=== PATIENT | female | born 1960 | race Caucasian/White ===

== ENCOUNTER → 2017-01-19 | Outpatient (CLI) | payer OTHER | LOC: FIMAGING 09:09 | DX: Z12.31 Encounter for screening mammogram for malignant neoplasm of breast (principal); Z85.3 Personal history of malignant neoplasm of breast | CPT/HCPCS: G0202 ==

== ENCOUNTER → 2018-01-20 | Outpatient (CLI) | payer OTHER | LOC: FIMAGING 08:56 | PROVIDERS: ATTEND Internal Medicine Hematology & Oncology | DX: Z12.31 Encounter for screening mammogram for malignant neoplasm of breast (principal); Z85.3 Personal history of malignant neoplasm of breast ==

== ENCOUNTER → 2018-01-28 | Outpatient (CLI) | payer OTHER | LOC: FIMAGING 11:12 | PROVIDERS: ATTEND Internal Medicine Hematology & Oncology | DX: R92.0 Mammographic microcalcification found on diagnostic imaging of breast (principal) ==

== ENCOUNTER → 2018-02-03 | Day surgery (SDC) | payer OTHER ==
[~2018-02-03] MED LIST: BUPIVACAINE 0.5% 10 ML SDV ONE; LIDOCAINE 1% 300 MG/30 ML SDV ONE; THROMBIN (BOVINE) 5,000 UNIT VIAL TP ONE
== END | disposition home or self-care (01) ==
LOC: FIMAGING 07:17
PROVIDERS: ATTEND Internal Medicine Hematology & Oncology
PROC: 0HBU3ZX Excision of Left Breast, Percutaneous Approach, Diagnostic (ICD-10-PCS; principal; 2018-02-03)
PROC: BH01ZZZ Plain Radiography of Left Breast (ICD-10-PCS; principal; 2018-02-03)
DX: D05.12 Intraductal carcinoma in situ of left breast (principal); Z85.3 Personal history of malignant neoplasm of breast; Z92.21 Personal history of antineoplastic chemotherapy

== ENCOUNTER → 2018-02-17 | Outpatient (CLI) | payer OTHER ==
[~2018-02-17] MED LIST changes: -BUPIVACAINE 0.5% 10 ML SDV ONE; +GADOBUTROL 10 ML VIAL IVP ONE; -LIDOCAINE 1% 300 MG/30 ML SDV ONE; -THROMBIN (BOVINE) 5,000 UNIT VIAL TP ONE
== END ==
LOC: FIMAGING 06:59
PROVIDERS: ATTEND Internal Medicine Hematology & Oncology
DX: D05.11 Intraductal carcinoma in situ of right breast (principal)
CPT/HCPCS: 0159T; A9585; C8908

== ENCOUNTER → 2018-03-17 | Day surgery (SDC) | payer OTHER ==
[~2018-03-17] MED LIST changes: -GADOBUTROL 10 ML VIAL IVP ONE; +LIDOCAINE 1% 300 MG/30 ML SDV ONE
== END | disposition home or self-care (01) ==
LOC: FIMAGING 07:31
PROVIDERS: ATTEND Radiology Diagnostic Radiology
DX: D05.11 Intraductal carcinoma in situ of right breast (principal); Z88.0 Allergy status to penicillin
CPT/HCPCS: 76098; 78195; A9520

== ENCOUNTER 2018-05-31 10:53 | Day surgery (SDC) | payer OTHER ==
[2018-05-31] MEDS ORDERED: LIDOCAINE 1% 2 ML INJ ID PRN (11:08)
[2018-05-31] MEDS ORDERED: LR 1,000 ML IV ONE (11:08)
[2018-05-31] MEDS ORDERED: INDOMETHACIN 50 MG SUPP PR PRN (12:32)
--- NOTE | 2018-05-31 12:32 | PDGENHP ---
History & Physical Chief Complaint: hx of polyps History of Present Illness: 57 year old female presents for surveillanc e of a complex hepatic flexure polyp Pertinent Past, Social, Family History: PMHx: Breast cancer. SurHx: Mastectomy Relevant Physical Exam: HEENT: anicterc. CV: RRR +s1s2. Lungs: CTAB No w/r/r. Abd: soft, nt, + BS Cardiorespiratory Assessment: ASA 2
[2018-05-31] MEDS ORDERED: PROPOFOL/EMULSION 500 MG/50 ML BOTTLE IV ONE (12:37)
[2018-05-31] MEDS ORDERED: MIDAZOLAM 2 MG/2 ML VIAL IVP ONE (12:41)
[2018-05-31] MEDS ORDERED: MIDAZOLAM 2 MG/2 ML VIAL ONE (12:42)
[2018-05-31] MEDS ORDERED: NS 500 ML IV SCH (12:45)
[2018-05-31] MEDS ORDERED: NALOXONE HCL 0.4 MG/ML INJ IVP PRN (13:12)
[2018-05-31] MEDS ORDERED: ALBUTEROL 3 ML DEYVIAL IH PRN (13:12)
[2018-05-31] MEDS ORDERED: ONDANSETRON 4 MG/2 ML VIAL IVP PRN (13:12)
--- NOTE | 2018-05-31 13:13 | POSTANESTH ---
Post Anesthetic Evaluation Cardiovascular Status: Similar to Pre-Op Cond Respiratory Status: Similar to Pre-op Cond. Level of Consciousness/Mental Status: Mildly Sleepy, Arousable Pain Control: Adequate, Prn Tx Ordered Nausea/Vomiting Control: Adequate, Prn Tx Ordered Complications Possibly Related to Anesthesia: None Noted
--- NOTE | 2018-05-31 13:13 | PDANEPAE ---
ANE Past Medical History - Cardiovascular History Hx Hypertension: No Hx Arrhythmias: No Hx Chest Pain: No Hx Coronary Artery / Peripheral Vascular Disease: No Hx CHF / Valvular Disease: No Hx Palpitations: No - Pulmonary History Hx COPD: No Hx Asthma/Reactive Airway Disease: No Hx Recent Upper Respiratory Infection: No Hx Oxygen in Use at Home: No Hx Sleep Apnea: No Sleep Apnea Screening Result - Last Documented: Negative - Neurologic History Hx Cerebrovascular Accident: No Hx Seizures: No Hx Dementia: No - Endocrine History Hx Diabetes: No - Renal History Hx Renal Disorders: No - Liver History Hx Hepatic Disorders: No - Neurological & Psychiatric Hx Hx Neurological and Psychiatric Disorders: Yes Neurological / Psychiatric History Comment: depression,anxiety - Cancer History Hx Cancer: Yes Cancer History Comment: breast - Congenital Disorder History Hx Congenital Disorders: No - GI History Hx Gastrointestinal Disorders: No - Other Health History Other Health History: none - Chronic Pain History Chronic Pain: No - Surgical History Prior Surgeries: lumpectomy 2013. lumpectomy 2018. colonoscopies ANE Review of Systems Review of Systems: - Exercise capacity METS (RN): 4 METS ANE Patient History - Allergies Allergies/Adverse Reactions: Penicillins Allergy (Verified 05/17/18 16:22) Rash - Home Medications Home Medications: Cholecalciferol (Vitamin D3) 05/17/18 [Last Taken 05/29/18] Co Q-10 05/17/18 [Last Taken 05/29/18] Desonide 05/17/18 [Last Taken 05/29/18] Flaxseed Oil 05/17/18 [Last Taken Unknown] Glucosamine 05/17/18 [Last Taken 05/30/18] Liothyronine Sodium 05/17/18 [Last Taken 05/30/18] Preservision Areds 2 Softgel 05/17/18 [Last Taken 05/29/18] Sertraline HCl 05/17/18 [Last Taken 05/30/18] Simvastatin 05/17/18 [Last Taken 05/29/18] Synthroid 05/17/18 [Last Taken 05/30/18] Tamoxifen Citrate 05/17/18 [Last Taken 05/30/18] VAGIFEM 05/17/18 [Last Taken 05/30/18] - NPO status NPO Since - Liquids (Date): 05/31/18 NPO Since - Liquids (Time): 02:00 NPO Since - Solids (Date): 05/30/18 NPO Since - Solids (Time): 08:45 - Smoking Hx Smoking Status: Never smoked - Family Anes Hx Family Hx Anesthesia Complications: none ANE Labs/Vital Signs - Vital Signs Blood Pressure: 158/83 Heart Rate: 71 Respiratory Rate: 19 O2 Sat (%): 95 Height: 157.48 cm Weight: 80.739 kg ANE Physical Exam - Airway Neck exam: FROM Mallampati Score: Class 2 Mouth exam: normal dental/mouth exam - Pulmonary Pulmonary: no respiratory distress - Cardiovascular Cardiovascular: regular rate and rhythym - ASA Status ASA Status: III ANE Anesthesia Plan Total IV Anesthesia: Yes
--- NOTE | 2018-05-31 13:26 | GIREPORT ---
[facility] Surgical Services - Endoscopy Department Patient Name: Britany Card Procedure Date: 05/31/2018 12:16 PM Patient Type: Outpatient Attending MD/ ER Physician: Rogelio Nelson MD Procedure: Colonoscopy Indications: High risk colon cancer surveillance: Personal history of colonic polyps Patient Profile: 57 year old female with a history of a complex polyp in the hepatic fle xure presents or surveillance colonoscopy. Providers: Rogelio Nelson MD Medicines: Monitored Anesthesia Care Complications: No immediate complications. Estimated blood loss: Minimal. Description of Procedure: After obtaining informed consent, the scope was passed under direct vis ion. Throughout the procedure, the patient's blood pressure, pulse, and oxyg en saturations were monitored continuously. The Colonoscope with irrigatio n channel was introduced through the anus and advanced to the cecum, identified by appendiceal orifice and ileocecal valve. The colonoscopy was performed without difficulty. The patient tolerated the procedure well. The quality of the bowel preparation was good. The ileocecal valve, appendi ceal orifice, and rectum were photographed. Findings: The perianal and digital rectal examinations were normal. Pertinent negatives include no palpable rectal lesions. A 2 mm polyp was found in the ascending colon. The polyp was sessile. T he polyp was removed with a cold biopsy forceps. Resection and retrieval w ere complete. A tattoo was seen at the hepatic flexure. A post-polypectomy scar was f ound at the tattoo site. There was no evidence of residual polyp tissue. Estimated Blood Loss: Estimated blood loss was minimal. Post Op Diagnosis: - One 2 mm polyp in the ascending colon, removed with a cold biopsy for ceps. Resected and retrieved. - A tattoo was seen at the hepatic flexure. A post-polypectomy scar was found at the tattoo site. There was no evidence of residual polyp tissu e. Recommendation: - Discharge patient to home (with escort). - Resume previous diet. - Continue present medications. - Repeat colonoscopy in 2 years for surveillance. - Thank you for allowing me to participate in the care of your patient. Attending Participation: I personally performed the entire procedure. Rogelio Nelson MD Rogelio Nelson MD 05/31/2018 1:25:25 PM This report has been signed electronicallyRogelio Nelson MD Number of Addenda: 0 Note Initiated On: 05/31/2018 12:16 PM Total Procedure Duration Time 0 hours 15 minutes 35 seconds [email or web address]
[2018-05-31 15:00] VITALS: BP 154/84
== END 2018-05-31 14:53 | disposition home or self-care (01) ==
LOC: FSGY 10:53
PROVIDERS: ATTEND Internal Medicine Gastroenterology
PROC: 0DJD8ZZ Inspection of Lower Intestinal Tract, Via Natural or Artificial Opening Endoscopic (ICD-10-PCS; principal; 2018-05-31 12:30)
PROC: 0DBK8ZX Excision of Ascending Colon, Via Natural or Artificial Opening Endoscopic, Diagnostic (ICD-10-PCS; principal; 2018-05-31 12:30)
DX: Z12.11 Encounter for screening for malignant neoplasm of colon (principal); D12.2 Benign neoplasm of ascending colon; Z86.010 Personal history of colon polyps; Z85.3 Personal history of malignant neoplasm of breast
CPT/HCPCS: J2250; J2704

== ENCOUNTER 2018-06-23 16:33 | Emergency (ER) | payer OTHER ==
--- NOTE | 2018-06-23 17:19 | CPEKG ---
Heart Rate: 74 RR Interval: 811 P-R Interval: 160 QRSD Interval: 98 QT Interval: 416 QTC Interval: 462 P Mobile: 31 QRS Mobile: 62 T Wave Mobile: 12 EKG Severity - NORMAL ECG - EKG Impression: SINUS RHYTHM Electronically Signed By: Shamika Freeman 23-Jun-2018 20:42:13
[2018-06-23 17:37] LABS: PLATELET COUNT 185 10^3/uL (150-400)
--- NOTE | 2018-06-23 18:21 | EDPHY ---
H & P Stated Complaint: SOB Time Seen by Provider: 06/23/18 16:57 HPI/ROS: CHIEF COMPLAINT: Shortness of breath HISTORY OF PRESENT ILLNESS: 57-year-old female with recurrent breast cancer presents with shortness of breath. She just completed a 2nd round of XRT. 1 week ago she was seen at an outside facility for right-sided chest pain. CT pulmonary angiogram reportedly negative. The chest pain has been controlled with ibuprofen 3 times daily. Today, she had an episode of exertional shortness of breath. She walked 1 block and became so short of breath that she needed to stop. Under a tremendous amount of stress recently related to recurrent cancer and her work. Pt thinks sx may be secondary to anxiety. No cough or fever. REVIEW OF SYSTEMS: complete 10 point ROS negative except at noted in the HPI - Personal History Current Tetanus/Diphtheria Vaccine: Unsure Current Tetanus Diphtheria and Acellular Pertussis (TDAP): Unsure - Medical/Surgical History Hx Asthma: No Hx Chronic Respiratory Disease: No Hx Diabetes: No Hx Cardiac Disease: No Hx Renal Disease: No Hx Cirrhosis: No Hx Alcoholism: No Hx HIV/AIDS: No Hx Splenectomy or Spleen Trauma: No Other PMH: Breast CA, hypothyroid, c section, HTN, hyperlipidemia - Social History Smoking Status: Unknown if ever smoked - Physical Exam Exam: General Appearance: Alert, pleasant Eyes: Pupils equal and round, no conjunctival pallor or injection ENT, Mouth: Mucous membranes moist Neck: Normal inspection Respiratory: Normal respiratory rate, Lungs are clear to auscultation Cardiovascular: Regular rate and rhythm Gastrointestinal: Abdomen is soft and nontender Neurological: A&O, nonfocal, normal gait Skin: Warm and dry, no rash Extremities: Nontender, no pedal edema Psychiatric: Mood and affect normal Constitutional: Initial Vital Signs Temperature (C) 37.2 C 06/23/18 16:43 Heart Rate 92 06/23/18 16:43 Respiratory Rate 16 06/23/18 16:43 Blood Pressure 173/96 H 06/23/18 16:43 O2 Sat (%) 95 06/23/18 16:43 O2 Delivery Mode Room Air Allergies/Adverse Reactions: Penicillins Allergy (Verified 06/23/18 16:40) Rash Home Medications: Medication Instructions Recorded Cholecalciferol (Vitamin D3) 05/17/18 Co Q-10 05/17/18 Desonide 05/17/18 Flaxseed Oil 05/17/18 Glucosamine 05/17/18 Liothyronine Sodium 05/17/18 Preservision Areds 2 Softgel 05/17/18 Sertraline HCl 05/17/18 Simvastatin 05/17/18 Synthroid 05/17/18 Tamoxifen Citrate 05/17/18 VAGIFEM 05/17/18 Medical Decision Making - Diagnostics EKG Interpretation: EKG interpreted by me reveals normal sinus rhythm, rate 74, no ST or T segment changes. Imaging Results: Imaging Impressions Chest X-Ray 06/23/18 16:58 Impression: Normal chest. Imaging: I viewed and interpreted images myself ED Course/Re-evaluation: This pt presents after an episode of SOB. stat EKG reveals no evidence of ischemia or dysrhythmia. Chest x-ray is unremarkable. Perc score is 1, D- dimer negative. I feel that I can safely exclude pulmonary embolism as diagnosis. No evidence of pneumonia or pneumothorax on chest x-ray. Patient ambulated throughout the emergency department and oxygen saturation remained 95 % on room air. I feel that she is safe and stable for discharge home. f/u PCP. Warning signs discussed. Differential Diagnosis: Differential diagnosis includes though it is not limited to pneumonia, pneumothorax, pulmonary embolism, aortic dissection, pericarditis, acute coronary syndrome. - Data Points Laboratory Results: Laboratory Results 06/23/18 17:10 06/23/18 17:10 06/23/18 06/23/18 06/23/18 17:10 17:10 17:10 WBC 6.10 10^3/uL 10^3/uL (3.80-9.50) RBC 4.18 10^6/uL 10^6/uL (4.18-5.33) Hgb 13.2 g/dL g/dL (12.6-16.3) Hct 37.9 % L % (38.0-47.0) MCV 90.7 fL fL (81.5-99.8) MCH 31.6 pg pg (27.9-34.1) MCHC 34.8 g/dL g/dL (32.4-36.7) RDW 11.8 % % (11.5-15.2) Plt Count 185 10^3/uL 10^3/uL (150-400) MPV 9.2 fL fL (8.7-11.7) Neut % (Auto) 59.5 % % (39.3-74.2) Lymph % (Auto) 26.7 % % (15.0-45.0) Sharp % (Auto) 8.7 % % (4.5-13.0) Eos % (Auto) 4.1 % % (0.6-7.6) Baso % (Auto) 0.7 % % (0.3-1.7) Nucleat RBC Rel Count 0.0 % % (0.0-0.2) Absolute Neuts (auto) 3.63 10^3/uL 10^3/uL (1.70-6.50) Absolute Lymphs (auto) 1.63 10^3/uL 10^3/uL (1.00-3.00) Absolute Monos (auto) 0.53 10^3/uL 10^3/uL (0.30-0.80) Absolute Eos (auto) 0.25 10^3/uL 10^3/uL (0.03-0.40) Absolute Basos (auto) 0.04 10^3/uL 10^3/uL (0.02-0.10) Absolute Nucleated RBC 0.00 10^3/uL 10^3/uL (0-0.01) Immature Gran % 0.3 % % (0.0-1.1) Immature Gran # 0.02 10^3/uL 10^3/uL (0.00-0.10) D-Dimer < 0.27 ug/mLFEU ug/mLFEU (0.00-0.50) Sodium 140 mEq/L mEq/L (135-145) Potassium 3.6 mEq/L mEq/L (3.3-5.0) Chloride 108 mEq/L mEq/L (97-110) Carbon Dioxide 23 mEq/l mEq/l (22-31) Anion Gap 9 mEq/L mEq/L (8-16) BUN 21 mg/dL mg/dL (7-23) Creatinine 0.9 mg/dL mg/dL (0.6-1.0) Estimated GFR > 60 Glucose 85 mg/dL mg/dL (70-100) Calcium 9.0 mg/dL mg/dL (8.5-10.4) NT-Pro-B Natriuret Pep 25 pg/mL pg/mL (0-125) Departure - Departure Disposition: Home, Routine, Self-Care Clinical Impression: Dyspnea Qualifiers: Dyspnea type: dyspnea on exertion Qualified Code(s): R06.09 - Other forms of dyspnea Condition: Good Instructions: Dyspnea (ED) Additional Instructions: Return for worsening symptoms or any concerns. Referrals: Rudy Porter MD [Medical Doctor] - As per Instructions Meseret Mtz MD [Primary Care Provider] - As per Instructions (Call to make an appointment.) Stand Alone Forms: Work Excuse
[2018-06-23 18:55] VITALS: BP 143/83
== END 2018-06-23 18:53 | disposition home or self-care (01) ==
DX: R06.09 Other forms of dyspnea (principal); I10 Essential (primary) hypertension

== ENCOUNTER → 2018-10-11 | Outpatient (CLI) | payer OTHER | LOC: FIMAGING 15:04 | PROVIDERS: ATTEND Internal Medicine Hematology & Oncology | DX: D05.11 Intraductal carcinoma in situ of right breast (principal) ==

== ENCOUNTER → 2019-02-07 | Outpatient (CLI) | payer OTHER | LOC: FIMAGING 13:45 | PROVIDERS: ATTEND Internal Medicine Hematology & Oncology | DX: Z12.31 Encounter for screening mammogram for malignant neoplasm of breast (principal); Z85.3 Personal history of malignant neoplasm of breast ==